=== PATIENT | male | born 2000 | race American Indian/Alaskan Native ===

== ENCOUNTER 2021-10-21 22:48 | Emergency (ER) | payer BC ==
[2021-10-21 22:58] VITALS: BP 154/74
[2021-10-21] MEDS ORDERED: ACETAMINOPHEN 325 MG TAB PO ONE (23:13)
[2021-10-21] MEDS ORDERED: FAMOTIDINE 20 MG TAB PO ONE (23:13)
--- NOTE | 2021-10-21 23:14 | Emergency Department Report ---
ED General Adult HPI - General Chief complaint: Anxiety Stated complaint: I feel like my anxiety is going. I have left-sided chest pain PUI?: No Time Seen by Provider: 10/21/21 23:00 Source: patient, EMS ( EMS documentation not available at time of chart dictation ), RN notes reviewed Mode of arrival: Ambulatory Limitations: No Limitations - History of Present Illness Initial comments: The patient is a 21-year-old gentleman. He is not known to myself previously. He has a history of anxiety. He presents to the ER with central left-sided chest pressure. This has been going on for about 3 to 4 hours. He reports that he feels anxious. The patient denies headache, neck pain, abdominal pain, vomiting, diaphoresis, travel, surgery, immobilization, personal/family history of DVT, PE, CAD/ACS. He occasionally smokes. He has intermittent shortness of breath. He has received 1 COVID-19 vaccination. He denies loss of taste and smell. -: Gradual, hour(s) Location: chest Radiation: non-radiation Consistency: now resolved Improves with: none Worsens with: none - Related Data Allergies Allergy/AdvReac Type Severity Reaction Status Date / Time codeine Allergy Hives Verified 10/21/21 22:59 Penicillins Allergy Hives Verified 10/21/21 22:59 ED Review of Systems ROS: Stated complaint: CHEST PAIN Other details as noted in HPI Constitutional: denies: fever Eyes: denies: eye discharge ENT: denies: congestion Respiratory: shortness of breath. denies: cough Cardiovascular: chest pain Gastrointestinal: denies: abdominal pain, nausea, vomiting, hematemesis, melena, hematochezia Musculoskeletal: denies: back pain Neurological: denies: headache, weakness Psychiatric: anxiety ED Past Medical Hx - Past Medical History Previous Medical History?: No ED Physical Exam - General Limitations: No Limitations General appearance: alert, in no apparent distress - Head Head exam: Present: atraumatic, normocephalic - Eye Eye exam: Present: normal appearance, EOMI. Absent: nystagmus - ENT ENT exam: Present: normal exam, normal orophraynx, mucous membranes moist, normal external ear exam - Neck Neck exam: Present: normal inspection, full ROM. Absent: tenderness, meningismus - Respiratory Respiratory exam: Present: normal lung sounds bilaterally. Absent: respiratory distress, wheezes, rales, rhonchi, stridor, decreased breath sounds - Cardiovascular Cardiovascular Exam: Present: regular rate, normal rhythm, normal heart sounds. Absent: bradycardia, tachycardia, irregular rhythm, systolic murmur, diastolic murmur, rubs, gallop - GI/Abdominal GI/Abdominal exam: Present: soft. Absent: distended, tenderness, guarding, rebound, rigid, pulsatile mass - Rectal Rectal exam: Present: deferred - Extremities Exam Extremities exam: Present: normal inspection, full ROM, other (2+ pulses noted in the bilateral upper extremities. There is no longer any tenderness. The pelvis is stable. The muscular compartments are soft. There is a negative Homans' sign. There is no asymmetry to the lower extremity). Absent: pedal edema, calf tenderness - Back Exam Back exam: Present: normal inspection. Absent: tenderness, CVA tenderness (R), CVA tenderness (L), paraspinal tenderness, vertebral tenderness - Neurological Exam Neurological exam: Present: alert, oriented X3, normal gait, other (No facial droop. Tongue midline. Extraocular movements intact bilaterally. Facial sensation intact to light touch in V1, V2, V3 distribution bilaterally. 5 and a 5 strength in 4 extremities. Sensation intact to light touch in 4 extremities.). Absent: motor sensory deficit - Psychiatric Psychiatric exam: Present: anxious - Skin Skin exam: Present: warm, dry, intact, normal color. Absent: rash ED Course Vital Signs 10/21/21 10/21/21 22:58 23:40 Temperature 98.9 F Pulse Rate 70 67 Respiratory 16 13 Rate Blood Pressure 154/74 [Left] O2 Sat by Pulse 99 100 Oximetry - Reevaluation(s) Reevaluation #1: 10/22/21 00:24 Patient feeling much improved. States he takes Zoloft and BuSpar. He is noted to be on his cell phone during my repeat evaluation and examination. I discuss ed the significance of his x-ray findings and EKG findings. He endorses readiness for discharge. ED Medical Decision Making - Lab Data Vital Signs 10/21/21 10/21/21 22:58 23:40 Temperature 98.9 F Pulse Rate 70 67 Respiratory 16 13 Rate Blood Pressure 154/74 [Left] O2 Sat by Pulse 99 100 Oximetry - EKG Data -: EKG Interpreted by Me EKG shows normal: sinus rhythm Rate: bradycardia - EKG Data When compared to previous EKG there are: previous EKG unavailable 10/21/21 23:51 EKG interpreted at 23: 22 Sinus rhythm, rate 53 bpm, bradycardia, normal axis, normal P wave axis, high left ventricular voltage, QTC 352 ms. Not a STEMI. No prior for comparison. - Radiology Data Radiology results: pending, report reviewed, image reviewed interpreted by me: 2 view x-ray of the chest, reviewed and appreciated by myself. No pneumothorax. No infiltrate. Clear lungs. Unremarkable bony anatomy. Normal cardiomediastinal silhouette CHEST 2 VIEWS INDICATION / CLINICAL INFORMATION: Left sided chest pain and shortness of breath. COMPARISON: None available. FINDINGS: SUPPORT DEVICES: None. HEART / MEDIASTINUM: The heart size and pulmonary vasculature are normal. The aorta is normal in caliber. LUNGS / PLEURA: No significant pulmonary or pleural abnormality. No pneumothorax. ADDITIONAL FINDINGS: No significant additional findings. IMPRESSION: No acute findings. Signer Name: Ashu Miramontes MD Signed: 10/21/2021 11:01 PM Workstation Name: [id number] - Medical Decision Making Differential diagnosis, including but not limited to: [place], GERD, gastritis, hiatal hernia, pneumonia, pneumothorax, costochondritis Assessment and plan: 21-year-old gentleman, who was afebrile, with reassuring vital signs, who is not currently tachycardic, tachypneic or hypoxic, who denies DVT and pulmonary embolism risk factors, who is low risk by Wells criteria for pulmonary embolism, and who is PERC negative, with an unremarkable EKG, unremarkable chest x-ray, unremarkable physical examination, and he does not appear to be in any acute distress at this time. The patient does not appear to have an emergent medical condition present at this time. Patient medicated supportively and symptomatically, and felt improved. Chest x- ray was unremarkable. The patient may follow-up with an outpatient primary care doctor. Return precautions are reviewed. Critical care attestation.: If time is entered above; I have spent that time in minutes in the direct care of this critically ill patient, excluding procedure time. ED Disposition Clinical Impression: History of chest pain, Encounter for medical screening examination Disposition: HOME / SELF CARE / HOMELESS Is pt being admited?: No Does the pt Need Aspirin: No Condition: Good Additional Instructions: Avoid consumption of tobacco, smoke products and alcohol. Patient may take [id number] Tylenol, acetaminophen, or Pepcid as needed for physical pain. We recommended the patient follow-up with a general medical doctor or primary care doctor within the next 2 weeks. Please return to the emergency room right away with new pain, worsened pain, migration of pain, projectile vomiting, change in mental status, confusion, inability to tolerate liquid feeds, new, worsened or different symptoms not present on the initial emergency room evaluation. Referrals: [facility] [Provider Group] - 3-5 Days Forms: Work/School Release Form(ED)
--- NOTE | 2021-10-22 00:05 | XRay Report ---
CHEST 2 VIEWS INDICATION / CLINICAL INFORMATION: Left sided chest pain and shortness of breath. COMPARISON: None available. FINDINGS: SUPPORT DEVICES: None. HEART / MEDIASTINUM: The heart size and pulmonary vasculature are normal. The aorta is normal in trish sylvie. LUNGS / PLEURA: No significant pulmonary or pleural abnormality. No pneumothorax. ADDITIONAL FINDINGS: No significant additional findings. IMPRESSION: No acute findings. Signer Name: Ashu Miramontes MD Signed: 10/22/2021 12:01 AM Workstation Name: [id number]
== END 2021-10-22 00:24 | disposition home or self-care (01) ==
LOC: ED 22:48
DX: R07.9 Chest pain, unspecified (principal); Z00.00 Encounter for general adult medical examination without abnormal findings; Z88.5 Allergy status to narcotic agent; Z88.0 Allergy status to penicillin
CPT/HCPCS: 71046; 93005; 99283

== ENCOUNTER 2021-10-22 18:32 | Emergency (ER) | payer BC ==
--- NOTE | 2021-10-22 20:29 | XRay Report ---
CHEST 1 VIEW INDICATION / CLINICAL INFORMATION: continued chest pain. COMPARISON: One day prior FINDINGS: SUPPORT DEVICES: None. HEART / MEDIASTINUM: No significant abnormality. LUNGS / PLEURA: No significant pulmonary or pleural abnormality. No pneumothorax. ADDITIONAL FINDINGS: No significant additional findings. IMPRESSION: 1. No acute findings. Signer Name: Rashel Barry MD Signed: 10/22/2021 8:24 PM Workstation Name: [id number]
--- NOTE | 2021-10-22 22:27 | Emergency Department Report ---
ED General Adult HPI - General Chief complaint: Chest Pain Stated complaint: CHEST PAIN Time Seen by Provider: 10/22/21 19:53 Source: patient Mode of arrival: Ambulatory Limitations: No Limitations - History of Present Illness Initial comments: 21-year-old F Bangl[place] male with a past medical history of left-sided chest discomfort currently being evaluated by cardiology. States he is worn a Holter monitor and is due for exercise stress test this week as if not discover the cause of his chest pain episodes. He reports having a sharp achy pain which is worse with palpation range of motion and deep breaths. He reports no numbness, no tingling, no dizziness, no shortness of breath, no lower extremity swelling, no hemoptysis no hematemesis no hematochezia no headache no chest trauma. He reports no significant change in his symptoms but because he had vague pain episodes want to be sure that there was nothing happening at this present time. Reports no rules no risk factors he denies any illicit drug use, more morbidities for acute coronary syndrome/angina -: Gradual Radiation: non-radiation Severity scale (0 -10): 7 Consistency: constant Associated Symptoms: chest pain. denies: loss of appetite, malaise, nausea/ vomiting, shortness of breath, syncope, weakness - Related Data Home Medications Medication Instructions Recorded Confirmed Last Taken No Known Home Medications [No 10/22/21 10/22/21 Unknown Reported Home Medications] Allergies Allergy/AdvReac Type Severity Reaction Status Date / Time codeine Allergy Hives Verified 10/21/21 22:59 Penicillins Allergy Hives Verified 10/21/21 22:59 ED Review of Systems ROS: Stated complaint: CHEST PAIN Other details as noted in HPI Comment: All other systems reviewed and negative ED Past Medical Hx - Medications Home Medications: Home Medications Medication Instructions Recorded Confirmed Last Taken Type No Known Home Medications [No 10/22/21 10/22/21 Unknown History Reported Home Medications] ED Physical Exam - General Limitations: No Limitations General appearance: alert, in no apparent distress - Head Head exam: Present: atraumatic, normocephalic - Eye Eye exam: Present: normal appearance - ENT ENT exam: Present: mucous membranes moist - Neck Neck exam: Present: normal inspection, full ROM - Respiratory Respiratory exam: Present: normal lung sounds bilaterally, chest wall tenderness (Tenderness to palpation to the sternal border of the left chest. No crepitus no subcutaneous air no subcutaneous eczema.). Absent: respiratory distress, wheezes, rales, rhonchi, stridor - Cardiovascular Cardiovascular Exam: Present: regular rate, normal rhythm. Absent: systolic murmur, diastolic murmur, rubs, gallop - GI/Abdominal GI/Abdominal exam: Present: soft, normal bowel sounds - Rectal Rectal exam: Present: deferred - Extremities Exam Extremities exam: Present: normal inspection - Back Exam Back exam: Present: normal inspection - Neurological Exam Neurological exam: Present: alert, oriented X3 - Psychiatric Psychiatric exam: Present: normal affect, normal mood - Skin Skin exam: Present: warm, dry, intact, normal color. Absent: rash ED Course Vital Signs 10/22/21 18:37 Temperature 98.7 F Pulse Rate 72 Respiratory 18 Rate Blood Pressure 148/75 [Right] O2 Sat by Pulse 99 Oximetry ED Medical Decision Making - EKG Data EKG shows normal: sinus rhythm Rate: normal - EKG Data When compared to previous EKG there are: no significant change Interpretation: normal EKG - Radiology Data Radiology results: report reviewed [address] [address] XRay Report Signed Patient: AMILCAR ADAM MR#: [id number] : 2000 Acct:[id number] Age/Sex: 21 / M ADM Date: 10/22/21 Loc: ED Attending Dr: Ordering Physician: JUVENCIO NGUYEN Date of Service: 10/22/21 Procedure(s): XR chest routine 2V Accession Number(s): [id number] cc: JUVENCIO NGUYEN Fluoro Time In Minutes: CHEST 1 VIEW INDICATION / CLINICAL INFORMATION: continued chest pain. COMPARISON: One day prior FINDINGS: SUPPORT DEVICES: None. HEART / MEDIASTINUM: No significant abnormality. LUNGS / PLEURA: No significant pulmonary or pleural abnormality. No pneumothorax. ADDITIONAL FINDINGS: No significant additional findings. IMPRESSION: 1. No acute findings. Signer Name: Rashel Rodriguez MD Signed: 10/22/2021 8:24 PM Workstation Name: [id number] Transcribed By: SB Dictated By: RASHEL RODRIGUEZ MD Electronically Authenticated By: RASHEL RODRIGUEZ MD Signed Date/Time: 10/22/212023 DD/ 23 TD/TT: - Medical Decision Making This patient presents with chest pain that is very unlikely angina or acute coronary syndrome. The emergency department evaluation has not identified any cause for suspicion that this chest pain has a cardiac etiology. Based on their history, EKG (which showed no evidence of ischemia or infarction) and imaging, in addition to the patient's physical exam, I see no evidence at this time for a malignant etiology for the patient's chest pain. There is no acute evidence for pulmonary embolus, acute myocardial infarction, pneumothorax, Boerhaeve syndrome, cardiac tamponade, thoracic artery dissection, or any other emergent cardiac, pulmonary or aortic pathology. Given the low pre-test probability for cardiac etiology of chest pain and the absence of any sign of ischemia or infarction, discharge for outpatient follow-up and further evaluation is reasonable. I have explained to the patient that even though a cardiac problem is very unlikely, follow-up and further testing is required to reduce further the already small uncertainty that exists. Other life-threatening diagnoses have been considered. The patient understands the need to return immediately if their symptoms worsen or they develop any new symptoms, and not to engage in any significant exertional activity until follow-up is obtained. Critical care attestation.: If time is entered above; I have spent that time in minutes in the direct care of this critically ill patient, excluding procedure time. 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
[2021-10-22 22:47] VITALS: BP 140/69
== END 2021-10-22 22:47 | disposition home or self-care (01) ==
LOC: ED 18:32
DX: R07.9 Chest pain, unspecified (principal); Z88.5 Allergy status to narcotic agent; Z88.0 Allergy status to penicillin
CPT/HCPCS: 71046; 93005; 99283